=== PATIENT | female | born 1960 | race Caucasian/White ===

== ENCOUNTER 2021-08-28 13:05 | Outpatient (REF) | payer OTHER, SELFPAY ==
--- NOTE | ~2021-08-28 | US_ITS ---
EXAMINATION: US VENOUS ULTRASOUND WITH DOPPLER LOWER EXTREMITY, RIGHT CLINICAL INFORMATION: Right leg swelling. History of Covid infection. COMPARISON: None TECHNIQUE: Ultrasound of the deep veins is performed from the hip to the calf with compression sonography and color and pulse Doppler assessment. Spectral analysis with color-flow imaging is performed. FINDINGS: There is normal venous compression and respiratory variation and augmented flow. The visualized common femoral vein, superficial femoral vein, profunda femoral vein, popliteal vein, and the trifurcation region shows no evidence of deep venous thrombosis. There is superficial thrombophlebitis seen in the right greater saphenous vein from the mid thigh to the lower leg. The right greater saphenous vein in the proximal thigh near the saphenofemoral junction is patent. There is no popliteal fossa cyst. US/US venous duplex LE RT IMPRESSION: No DVT demonstrated in the right lower extremity. Superficial thrombophlebitis in the right greater saphenous vein in the mid thigh lower leg. Findings will be communicated by the [place] work flow dairy technician Cande Begum.
== END 2021-08-28 13:06 | disposition home or self-care (01) ==
LOC: HO.HMGCX 13:05
PROVIDERS: PCP Hospitalist; Visit Provider Hospitalist
DX: I83.813 Varicose veins of bilateral lower extremities with pain (principal); R60.0 Localized edema; Z86.16 Personal history of COVID-19
CPT/HCPCS: 93971

== ENCOUNTER 2021-10-07 18:49 | Outpatient (REF) | payer OTHER, SELFPAY ==
[2021-10-07 19:39] LABS: Influenza A PCR POSITIVE (Negative); Influenza B PCR NEGATIVE (Negative); Resp Syncy Virus RNA Qual PCR NEGATIVE (Negative); SARS COV2 PCR INHOUSE NEGATIVE (Negative)
== END 2021-10-07 18:50 | disposition home or self-care (01) ==
LOC: HO.LNP 18:49
PROVIDERS: Visit Provider Hospitalist
DX: Z20.822 Contact with and (suspected) exposure to COVID-19 (principal); R05.9 Cough, unspecified; J06.9 Acute upper respiratory infection, unspecified
CPT/HCPCS: 0241U